=== PATIENT | female | born 1980 | race Caucasian/White ===

== ENCOUNTER 2017-02-22 21:54 | Emergency (ER) | payer BC ==
[~2017-02-22] VITALS: Ht 162.6 cm; Wt 79.0 kg
[~2017-02-22 21:54] MED LIST: CEPH500C2 PO; HYDR-5688 PO; IBUP-1450 PO; OMEG10007 PO; ONDA4TAB46 PO; OXYC5TAB PO; STEROID EYE DROP OPB; VALA500T60 PO
[2017-02-22 22:02] VITALS: TEMP 36.7; Ht 162.6 cm; Wt 79.0 kg
[2017-02-22] MEDS ORDERED: OXYCODONE HCL IR 5 MG TAB (IMMEDIATE RELEASE) PO STA (22:16)
[2017-02-22] MEDS ORDERED: IBUPROFEN 200 MG TAB PO STA (22:16)
[2017-02-22] MEDS ORDERED: OFLOXACIN 0.3% OP SOLN 5 ML BTL OT STA (22:23)
[2017-02-22] MEDS ORDERED: OXYCODONE IR HOME PACK PO ONE (22:30)
[2017-02-22] MEDS ORDERED: NORT10CA2 PO (23:05)
[2017-02-22] MEDS ORDERED: ARTISOL OPB (23:05)
[2017-02-22] MEDS ORDERED: OXYC-57 PO (23:05)
[2017-02-22] MEDS ORDERED: ACET-749 PO (23:05)
[2017-02-22] MEDS ORDERED: AMOX875T PO (23:05)
--- NOTE | 2017-02-22 23:07 | EMERGENCY ROOM VISIT NOTE ---
History First contact with patient: 22:07 Chief Complaint: EAR PAIN Stated Complaint: DOUBLE EARACHE History of Present Illness The patient is a 36 year old female who presents to the Emergency Room with complaints of severe ear pain that has been going on for the last 2 days. The patient started her symptoms 5 days ago with a sore throat. Her ear pain started with the left ear yesterday. It soon moving to the right ear. She has had decreased hearing in the left ear today. The patient saw urgent care earlier today. She was prescribed Augmentin. She has had one dose. She is also tried ibuprofen and a leftover oxycodone with minimal relief of the pain. She was running a fever earlier this week. That has dissipated. She denies any severe headache or neck pain. Review of Systems 6 system review negative. Please see pertinent positives in the history of present illness section. Past Medical/Surgical History Medical Problems: (1) No significant past medical history Surgical Problems: (1) History of ankle surgery (2) History of neck surgery (3) History of surgery on arm History of migraines Family History FH: cancer FH: hypertension Social History Smoking Status: Never Smoker Alcohol Use: occasionally Marital Status: Housing Status: lives with family Occupation Status: employed Current/Historical Medications Scheduled Amoxicillin & Pot Clavulanate (Augmentin 875-125 mg), 1 TAB PO BID Artificial Tear Solution (Tears Naturale), 1 DROP OPB PRN Nortriptyline (Pamelor), 10 MG PO HS Prednisone (Prednisone), 50 MG PO DAILY Scheduled PRN Acetaminophen/Codeine (Tylenol W/Codeine #3), 1 TAB PO Q4 PRN for Pain Ibuprofen (Motrin), 600 MG PO Q6H PRN for Pain Oxycodone Ir (Roxicodone Ir), 1-2 TAB PO Q4H PRN for Pain Oxycodone/Acetaminophen 5MG/325MG (Percocet 5MG/325MG), 1 TABLET PO Q4H PRN for Pain Physical Exam Vital Signs Date Time Temp Pulse Resp B/P (MAP) Pulse Ox O2 Delivery O2 Flow Rate FiO2 02/22/17 23:43 83 20 123/84 100 02/22/17 23:07 83 20 121/84 100 02/22/17 22:02 36.7 77 16 126/88 99 Room Air Physical Exam VITALS: Vitals are noted on the nurse's note and reviewed by myself. Vital signs stable. GENERAL: 36-year-old female, in obvious discomfort, SKIN: The skin was without rashes, erythema, edema, or bruising. HEAD: Normocephalic atraumatic. EARS: Right external auditory canal is a significantly erythematous. The tympanic membrane is bulging and erythematous. There is purulent effusion noted. Left external auditory canal is also erythematous and edematous. Moderate amount of cerumen noted. The tympanic membrane is also erythematous with a purulent effusion noted. At this point, TMs are intact. EYES: Conjunctivae without injection, sclerae without icterus. Extraocular movements intact. NOSE: Patent, turbinates without inflammation or discharge. No sinus tenderness. MOUTH: Mucous membranes moist. No erythema of the pharynx. No significant edema of the tonsils bilaterally. . Uvula midline. Airway patent. Tongue does not deviate. NECK: Supple without nuchal rigidity. Lymphadenopathy in the anterior and cervical chain bilaterally. Cervical spine is nontender. No JVD. HEART: Regular rate and rhythm without murmurs gallops or rubs. LUNGS: Clear to auscultation bilaterally without wheezes, rales or rhonchi. No accessory muscle use. MUSCULOSKELETAL: No muscle atrophy, erythema, or edema noted. Strength 5/5 throughout. NEURO: Patient was alert and oriented to person place and time. Normal sensation to touch. No focal neurological deficits. Medical Decision & Procedures Medications Administered Medications (Trade) Dose Ordered Sig/Neha Route Start Time Stop Time Status Last Admin Dose Admin Prednisone (PredniSONE TAB) 60 mg NOW STAT PO 02/22/17 22:16 02/22/17 22:17 DC 02/22/17 23:04 60 MG Oxycodone HCl (Roxicodone Immediate Rel Tab) 5 mg NOW STAT PO 02/22/17 22:16 02/22/17 22:17 DC 02/22/17 23:04 5 MG Ibuprofen (Advil Tab) 800 mg NOW STAT PO 02/22/17 22:16 02/22/17 22:17 DC 02/22/17 23:03 800 MG Ofloxacin (Ocuflox 0.3% Oph Soln) 10 drops ONE STAT OT 02/22/17 22:23 02/22/17 22:25 DC 02/22/17 23:11 10 DROPS Oxycodone HCl (Roxicodone Immediate Rel 5MG Home Pack) 1 homepack UD ONCE PO 02/22/17 22:30 02/22/17 22:31 DC 02/22/17 23:04 1 HOMEPACK Ondansetron HCl (Zofran Odt) 4 mg NOW STAT PO 02/22/17 23:09 02/22/17 23:10 DC 02/22/17 23:13 4 MG ED Course The patient was seen and examined She was medicated with Motrin 800 mg and oxycodone 5 mg. Ofloxacin drops were placed in the ears bilaterally. She was also given 1 dose of prednisone 60 mg by mouth. She was given a home pack of oxycodone. Discharge instructions were reviewed, and she was discharged in good condition Medical Decision Differential diagnosis: Otitis media, otitis externa, perforated TM, sinusitis, strep pharyngitis This patient is a 36-year-old female that presents emergency department with severe ear discomfort. On exam, both her tympanic membrane and external auditory canal are significantly erythematous. She had a purulent effusion bilaterally. The patient is being adequately covered with Augmentin for 10 days. Given her decreased hearing on the left, She was also prescribed ofloxacin drops to cover for a possible perforated membrane given the severity of her symptoms. She was also given a steroid to calm down inflammation. She was instructed to follow-up with her primary care physician in 48 hours for recheck. She agrees to return here if any new or worsening symptoms. This chart was completed in part utilizing [employer] Speech Voice Recognition software. Attempts were made to minimize the grammatical errors, random word insertions, pronoun errors and incomplete sentences. Any formal questions or concerns about the content, text or information contained within the body of this dictation should be directly addressed to the provider for clarification. Medication Reconcilliation Current Medication List: was personally reviewed by me Blood Pressure Screening Patient's blood pressure: Normal blood pressure Impression Primary Impression: Otitis media Departure Information Dispostion Home / Self-Care Condition FAIR Prescriptions Prednisone (Prednisone) 50 Mg Tab 50 MG PO DAILY for 4 Days, #4 TAB Prov: Jen Bruce PA-C 02/22/17 Oxycodone Ir (Roxicodone Ir) 5 Mg Tab 1-2 TAB PO Q4H Y for Pain, #15 TAB For Initial Treatment Prov: Jen Bruce PA-C 02/22/17 Referrals Erasto Johnston M.D.([facility]) (PCP) Patient Instructions My [facility] Additional Instructions You were evaluated in the emergency department for an ear infection on both sides. It is very important to take the entire course of Augmentin as directed. Please take this medication with food. I recommend eating a yogurt daily or take a probiotic such as Culturelle taking this medication. Ibuprofen 800 mg every 8 hours for pain for 24 hours. Then, please take this medication every 8 hours as needed Oxycodone Immediate Release (OxyIR) 5mg: Take 1-2 pills every four hours for pain. Avoid alcohol, operating machinery or dangerous equipment, working on ladders or roofs, DRIVING, or situations where being under the influence may be dangerous. It is recommended to use an kcep-hoc-[id number] stool softener such as Colace, 100mg twice daily while taking this medication to avoid constipation. Please use ofloxacin ear drops 10 drops to each ear twice daily for 7 days Please take entire course of antibiotics It is very important to follow up with your primary care physician within the next 48-72 hours for a recheck Please return to the emergency department with a new, worsening or concerning symptoms
[2017-02-22] MEDS ORDERED: ONDANSETRON 4MG OD TAB PO STA (23:09)
[2017-02-22] MEDS ORDERED: OXYC1TAB3 PO (23:13)
[2017-02-22] MEDS ORDERED: PRED50TA PO (23:13)
[2017-02-22 23:43] VITALS: BP 123/84; PULSE 83; O2SAT 100
== END 2017-02-22 23:45 | disposition home or self-care (01) ==
LOC: C.EDB 21:54 → C.EDA 23:45
DX: H66.90 Otitis media, unspecified, unspecified ear (principal); Z82.49 Family history of ischemic heart disease and other diseases of the circulatory system

== ENCOUNTER 2017-07-27 05:07 | Observation (INO) | payer BC ==
[2017-07-18 12:59] VITALS: Ht 162.6 cm; Wt 78.6 kg
--- NOTE | 2017-07-18 13:28 | PAT Medication Instructions ---
Service Date Jul 18, 2017. Current Home Medication List Acetaminophen/Codeine (Tylenol W/Codeine #3), 1 TAB PO Q4 PRN for Pain Artificial Tear Solution (Tears Naturale), 1 DROP OPB PRN Nortriptyline (Pamelor), 10 MG PO HS Medication Instructions For Your Scheduled Surgery - Take the following medications the morning of surgery with a sip of water: Acetaminophen/Codeine (Tylenol W/Codeine #3), 1 TAB PO Q4 PRN (if needed, can be taken up to four hours before surgery) Artificial Tear Solution (Tears Naturale), 1 DROP OPB PRN (if needed) - Take the following medications as scheduled the night before surgery: Acetaminophen/Codeine (Tylenol W/Codeine #3), 1 TAB PO Q4 PRN for Pain (if needed) Artificial Tear Solution (Tears Naturale), 1 DROP OPB PRN (if needed) Nortriptyline (Pamelor), 10 MG PO HS If you have any questions please call us at [phone] or [phone] or [phone]
[2017-07-18 14:45] LABS: BASO ABS # 0.07 K/uL (0-0.2); EOS % 1.6 %; EOS ABS # 0.11 K/uL (0-0.5); HEMATOCRIT 38.7 % (37-47); HEMOGLOBIN 13.1 g/dL (12.0-16.0); IG# 0.01 K/uL (0.00-0.02); LYMPH % 26.2 %; MEAN CELL VOLUME 83.8 fL (80-100); MEAN CORPUSCULAR HEMOGLOBIN 28.4 pg (25-34); MEAN CORPUSCULAR HGB CONC 33.9 g/dl (32-36); MEAN PLATELET VOLUME 8.8 fL (7.4-10.4); MONO % 7.3 %; NEUT % 63.8 %; NEUT ABS # 4.37 K/uL (1.4-6.5); PLATELET COUNT 291 K/uL (130-400); RED CELL DISTRIBUTION WIDTH CV 13.3 % (11.5-14.5); RED CELL DISTRIBUTION WIDTH SD 40.2 fL (36.4-46.3); WHITE BLOOD COUNT 6.86 K/uL (4.8-10.8)
[2017-07-18 14:55] LABS: ALBUMIN 3.4 gm/dl (3.4-5.0); CALCIUM 9.1 mg/dl (8.5-10.1); CREATININE 0.78 mg/dl (0.60-1.20); POTASSIUM 3.9 mmol/L (3.5-5.1)
[2017-07-18 14:57] LABS: TOTAL PROTEIN 7.4 gm/dl (6.4-8.2)
[2017-07-27] VITALS (8 sets, daily range): BP systolic 96–126; BP diastolic 64–81; PULSE 73–100; TEMP 36.2–36.8; O2SAT 96–99
[~2017-07-27] VITALS: Ht 162.6 cm; Wt 78.6 kg
[~2017-07-27 05:07] MED LIST changes: +ACET300T3 PO; +ARTISOL OPB; -CEPH500C2 PO; -HYDR-5688 PO; -IBUP-1450 PO; +NORT10CA2 PO; -OMEG10007 PO; -ONDA4TAB46 PO; -OXYC5TAB PO; -STEROID EYE DROP OPB; -VALA500T60 PO
[2017-07-27] MEDS ORDERED: OXYC1TAB3 PO (05:43)
[2017-07-27] MEDS ORDERED: LACTATED RINGER'S 1000ML 1,000 ML IV SCH ×3 (06:00→12:00)
[2017-07-27] MEDS ORDERED: ROCURONIUM BROMIDE 10 MG/ML 5 ML VIAL ONE (06:39)
[2017-07-27] MEDS ORDERED: LIDOCAINE HCL 2% 2 ML VIAL (20MG/ML) ONE (06:39)
[2017-07-27] MEDS ORDERED: PROPOFOL IV EMULSION 10 MG/ML 20 ML VIAL ONE (06:39)
[2017-07-27] MEDS ORDERED: FENTANYL CITRATE INJ 50 MCG/1 ML 2 ML VIAL ONE ×2 (06:40→07:31)
[2017-07-27] MEDS ORDERED: MIDAZOLAM HCL 1 MG/ML 2ML VIAL ONE (06:40)
[2017-07-27] MEDS ORDERED: BUPIVACAINE/EPINEPHRINE 0.5% MPF 1:200,000 30 ML VIAL ONE (06:54)
--- NOTE | 2017-07-27 07:12 | History & Physical Bridge Note ---
H&P Re-Evaluation Bridge Note: I have examined the patient, reviewed the History & Physical and in the interval since the performance of the History & Physical I have noted the following changes of clinical significance: No changes noted
[2017-07-27] MEDS ORDERED: DEXAMETHASONE SOD INJ 4 MG/ML VIAL ONE (07:31)
[2017-07-27] MEDS ORDERED: HYDROmorphone INJ 2 MG/ML SYR/VIAL ONE (08:23)
[2017-07-27] MEDS ORDERED: METHYLENE BLUE 0.5% 10 ML VIAL ONE ×2 (09:09→10:06)
[2017-07-27] MEDS ORDERED: ARISTA ABSORBABLE HEMOSTAT 3GM TOP ONE (09:28)
[2017-07-27] MEDS ORDERED: OXIDIZED CELLULOSE 1 EA TOP ONE ×2 (09:31→09:32)
[2017-07-27] MEDS ORDERED: HYDROmorphone INJ 2 MG/ML SYR/VIAL IV PRN (09:45)
[2017-07-27] MEDS ORDERED: ATROPINE SULFATE 0.1 MG/ML 5ML SYR IV PRN (09:45)
[2017-07-27] MEDS ORDERED: EpHEDrine SULFATE INJ 50 MG/ML AMP IV PRN (09:45)
[2017-07-27] MEDS ORDERED: ONDANSETRON INJ 2 MG/ML 2 ML VIAL IV PRN ×2 (09:45→10:45)
[2017-07-27] MEDS ORDERED: PROMETHAZINE HCL INJ 6.25 MG in SODIUM CHLORIDE 0.9% 50ML 50 ML IV PRN (09:45)
--- NOTE | 2017-07-27 10:39 | [facility] Post Operative Brief Note ---
Immediate Operative Summary Operative Date July 27, 2017. Pre-Operative Diagnosis 9cm right ovarian cyst Post-Operative Diagnosis same as preop Procedure(s) Performed Operative Laparoscopy, Drainage of Right Ovarian Cyst, Right Salpingo-Oophorectomy, Cystoscopy, Pelvic Washing, Extensive Lysis of Adhesions Surgeon Dr. Giuseppe Jones Stacker And Sorter Operator Surgeon(s) Dr. Carlos A Paul Estimated Blood Loss 50ML Findings Consistent with Post-Op Diagnosis ictated Specimens Permanent Solution: A.) Right Ovary and Right Fallopian Tube Cytology: Pelvic Washing Drains None Anesthesia Type General Complication(s) none
[2017-07-27] MEDS ORDERED: ZOLPIDEM TARTRATE 5 MG TAB PO PRN (10:45)
[2017-07-27] MEDS ORDERED: PROMETHAZINE HCL INJ 12.5 MG in SODIUM CHLORIDE 0.9% 50ML 50 ML IV PRN (10:45)
[2017-07-27] MEDS ORDERED: BISACODYL 10 MG SUPP PR PRN (10:45)
[2017-07-27] MEDS ORDERED: ACETAMINOPHEN 325 MG TAB PO PRN (10:45)
[2017-07-27] MEDS ORDERED: OXYCODONE/ACETAMINOPHEN 5-325 TAB PO PRN (10:45)
[2017-07-27] MEDS ORDERED: MAGNESIUM HYDROXIDE SUSP 30 ML UDC PO PRN (10:45)
[2017-07-27] MEDS ORDERED: KETOROLAC TROMETHAMINE 30 MG/ML VIAL IV. PRN (10:45)
[2017-07-27] MEDS ORDERED: PROMETHAZINE HCL INJ 25 MG in SODIUM CHLORIDE 0.9% 50ML 50 ML IV PRN (10:45)
[2017-07-27] MEDS: FENTANYL CITRATE INJ 50 MCG/1 ML 2 ML VIAL IV PRN ×3 (10:53→11:07)
[2017-07-27] MEDS ORDERED: KETOROLAC TROMETHAMINE 30 MG/ML VIAL ONE (11:01)
[2017-07-27] MEDS ORDERED: GLYCOPYRROLATE INJ 0.2 MG/ML VIAL ONE (11:51)
[2017-07-27] MEDS ORDERED: NEOSTIGMINE METHYLSULFATE 5 MG/5 ML SYR ONE (11:51)
[2017-07-27] MEDS ORDERED: PHENYLEPHRINE 100MCG/ML 5ML SYR ONE (11:51)
--- NOTE | 2017-07-27 11:55 | Anesthesiology Progress Note ---
Anesthesia Post Op Note Date & Time July 27, 2017 at 11:55 Vital Signs Pain Intensity: 3 Vital Signs Past 12 Hours Date Time Temp Pulse Resp B/P (MAP) Pulse Ox O2 Delivery O2 Flow Rate FiO2 07/27/17 11:40 62 12 106/65 100 Nasal Cannula 2 07/27/17 11:30 36.3 68 12 97/63 100 Nasal Cannula 2 07/27/17 11:15 71 12 103/64 98 Nasal Cannula 2 07/27/17 11:05 66 18 103/63 100 Oxymask 10 07/27/17 10:55 72 20 107/74 100 Oxymask 10 07/27/17 10:47 36.5 79 18 114/73 100 Oxymask 10 07/27/17 05:46 36.8 77 16 119/81 (94) 97 Room Air Notes Mental Status: alert / awake / arousable, participated in evaluation Pt Amnestic to Procedure: Yes Nausea / Vomiting: adequately controlled Pain: adequately controlled Airway Patency, RR, SpO2: stable & adequate BP & HR: stable & adequate Hydration State: stable & adequate Anesthetic Complications: no major complications apparent
[2017-07-27] MEDS ORDERED: IV FLUIDS COMPLETED PRN (12:45)
[2017-07-27] MEDS: IBUPROFEN 600 MG TAB PO PRN ×2 (15:33→20:18)
[2017-07-27] MEDS: OXYCODONE/ACETAMINOPHEN 5-325 TAB PO PRN ×2 (15:33→20:18)
[2017-07-27] MEDS: SIMETHICONE 80 MG CHEW PO PRN (16:02)
--- NOTE | 2017-07-27 17:29 | OPERATIVE REPORT ---
DATE OF OPERATION: 07/27/2017 INDICATION FOR SURGERY: This is a 36-year-old with 9 cm right ovarian cyst. PREOPERATIVE DIAGNOSES: 1. Chronic pelvic pain. 2. A 9 cm right ovarian cyst. POSTOPERATIVE DIAGNOSES: 1. Chronic pelvic pain. 2. A 9 cm right ovarian cyst. 3. Extensive lysis of adhesion. PROCEDURES: 1. Operative laparoscopy. 2. Drainage of right ovarian cyst. 3. Right salpingo-oophorectomy. 4. Cystoscopy. 5. Pelvic washings. 6. Extensive lysis of adhesion. SURGEON: Giuseppe Jones M.D. INFORMATION TECHNOLOGY COORDINATOR: Carlos A Paul DO ESTIMATED BLOOD LOSS: 50 mL FINDINGS: Normal female escutcheon. No lesions on the vulva or cervix. Abdominal findings, a 9-10 cm chocolate filled right adnexal mass, appears to be ovarian cyst engulfed around the entire right ovary. There was extensive adhesion of the cyst to the abdominal wall and to the posterior cul-de-sac. There were also adhesions of the sigmoid colon to the posterior cul-de-sac. The left adnexa was unremarkable. The left ovary was absent from a previous salpingo-oophorectomy. Findings from cystoscopy were unremarkable. Both urethral orifices were identified and urine was seen jetting out of both urethral openings into the bladder. SPECIMEN: Right ovary and right fallopian tube, cytology pelvic washings. DRAINS: None. ANESTHESIA: General. COMPLICATIONS: None. DISPOSITION: Stable to recovery room. DESCRIPTION OF PROCEDURE: The patient was taken to the operating room where she was prepped and draped in normal sterile fashion in dorsal lithotomy position after time out was called. Bladder was catheterized and clear urine was obtained. A heavy weighted speculum was placed in the vagina. Landis retractor was used to retract the anterior part of the vagina. Single tooth tenaculum was used to grab the cervix. A uterine manipulator placed into the uterus to help manipulate the uterus during laparoscopy. Attention was paid to the abdominal part of the procedure where an infraumbilical incision was made with a scalpel. A Veress needle attached to a syringe was placed in the abdomen while tenting up the abdomen at a 45 degree angle. Intraabdominal placement was confirmed using a water filled syringe. Abdomen was insufflated with CO2 gas to 3 liters. The Veress needle was removed and a 5 mm trocar was placed in the abdomen under direct visualization. Once inside the abdomen, the trocar was repositioned. Three more accessory ports were placed in the abdomen, all under direct visualization. A 10-mm trocar was placed in the suprapubic region, also under direct visualization. The findings of the abdomen is already dictated above. Through an accessory ports, fluid was poured into the pelvis for pelvic washings. The fluid was suctioned and sent to Cytology for cytologic evaluation. A needle attached to suction was passed through the accessory port and the needle was used to baum the cyst. Cyst fluid was suctioned out as much as possible. The incision in the cyst was extended and the suction pushed further into the cyst cavity, more chocolate cyst fluid was obtained and drained. Because the adnexa was attached to the posterior cul-de-sac, extensive lysis of adhesion was performed to separate the cyst wall from the posterior cul-de-sac. There was also attachment of the sigmoid colon to the cul-de-sac, which was also carefully dissected. After extensive dissection and lysis of adhesions, the entire ovary and cyst was transected. The infundibulopelvic was transected as well. There was good hemostasis. The 10 mm accessory port was used to remove the specimen. Specimen bag was passed through the 10 mm accessory port and the specimen placed in the specimen bag. Two specimen bags were used because of the size of this specimen. A copious amount of irrigation was used to irrigate the abdomen with suction. The suction was removed from the abdomen. Attention was paid to the cystoscopy part of the procedure where cystoscope was placed in the bladder, the bladder appeared grossly normal. There appeared to be no trauma in the bladder. Both ureteral orifices were seen and peristalsis was present. Both urethral orifices had urine jetting out of the urethral orifice. The attention was paid back to the abdominal part of the procedure where the trocars were removed. The 10 mm incision was closed in layer, the fascia was closed with 0 Vicryl. All other trocar sites were 5 mm and skin was closed with 4-0 Monocryl. All instruments are removed from the abdomen and the vagina including retractors, sponges and needles and accounted for x2. The patient is sent to recovery in stable condition. I attest to the content of the Intraoperative Record and any orders documented therein. Any exceptions are noted below. MTDD
[2017-07-27 19:59] LABS: HEMOGLOBIN 12.6 g/dL (12.0-16.0)
[2017-07-27] MEDS: DOCUSATE SODIUM 100 MG CAP PO SCH (20:17)
[2017-07-28] MEDS: OXYCODONE/ACETAMINOPHEN 5-325 TAB PO PRN ×3 (00:16→12:34)
[2017-07-28] MEDS: IBUPROFEN 600 MG TAB PO PRN ×3 (00:17→12:34)
[2017-07-28 03:50] VITALS: BP 105/72; PULSE 101; TEMP 36.7; O2SAT 99
[2017-07-28 07:30] VITALS: BP 100/65; PULSE 95; TEMP 36.6; O2SAT 98
[2017-07-28 07:42] LABS: BASO % 0.1 %; BASO ABS # 0.02 K/uL (0-0.2); HEMATOCRIT 34.8 % (37-47); HEMOGLOBIN 11.8 g/dL (12.0-16.0); IG# 0.04 K/uL (0.00-0.02); LYMPH % 6.7 %; LYMPH ABS # 0.93 K/uL (1.2-3.4); MEAN CELL VOLUME 83.3 fL (80-100); MEAN CORPUSCULAR HEMOGLOBIN 28.2 pg (25-34); MEAN CORPUSCULAR HGB CONC 33.9 g/dl (32-36); MONO % 6.2 %; MONO ABS # 0.86 K/uL (0.11-0.59); NEUT % 86.7 %; NEUT ABS # 11.98 K/uL (1.4-6.5); PLATELET COUNT 221 K/uL (130-400); WHITE BLOOD COUNT 13.83 K/uL (4.8-10.8)
[2017-07-28] MEDS: DOCUSATE SODIUM 100 MG CAP PO SCH (08:05)
[2017-07-28 08:06] LABS: CALCIUM 8.3 mg/dl (8.5-10.1); CREATININE 0.77 mg/dl (0.60-1.20); POTASSIUM 3.8 mmol/L (3.5-5.1)
[2017-07-28] MEDS: SIMETHICONE 80 MG CHEW PO PRN (08:06)
--- NOTE | 2017-07-28 09:47 | Surgery Progress Note ---
Surgery Progress Note Date of Service July 28, 2017. Subjective Post OP Day: 1 + feeling well, + complaints (gas pain), + chest pain, + ambulating (Minimal), + SOB, + flatus (+ve ), + pain controlled, + using RN CLINICAL TRIALS, + diet (Tolerating PO food and meds), No bowel movement, No nausea, No vomiting Objective Vital Signs: Date Time Temp Pulse Resp B/P (MAP) Pulse Ox O2 Delivery O2 Flow Rate FiO2 07/28/17 07:30 98 Room Air 07/28/17 07:30 36.6 95 24 100/65 (77) 98 Room Air 07/28/17 03:50 36.7 101 18 105/72 (83) 99 Room Air 07/27/17 23:30 Room Air 07/27/17 23:30 36.8 100 18 108/69 (82) 96 Room Air 07/27/17 20:30 Room Air 07/27/17 20:30 36.7 93 18 118/77 (91) 98 Room Air 07/27/17 15:30 Room Air 07/27/17 15:00 36.6 92 18 126/79 (95) 98 Room Air 07/27/17 14:00 36.2 89 18 118/77 (91) 98 Room Air 07/27/17 13:00 36.2 78 18 96/64 (75) 98 Room Air 07/27/17 12:30 36.2 73 16 100/68 (79) 97 Room Air 07/27/17 12:00 36.2 85 18 97/64 (75) 99 Room Air 07/27/17 12:00 Room Air 07/27/17 11:40 62 12 106/65 100 Nasal Cannula 2 07/27/17 11:30 36.3 68 12 97/63 100 Nasal Cannula 2 07/27/17 11:15 71 12 103/64 98 Nasal Cannula 2 07/27/17 11:05 66 18 103/63 100 Oxymask 10 07/27/17 10:55 72 20 107/74 100 Oxymask 10 07/27/17 10:47 36.5 79 18 114/73 100 Oxymask 10 General Appearance: WD/WN, no apparent distress Head: normocephalic, atraumatic Neck: supple, no adenopathy, thyroid normal, no JVD, no carotid bruits, trachea midline Respiratory/Chest: chest non-tender, lungs clear, normal breath sounds, no respiratory distress, no accessory muscle use Cardiovascular: regular rate, rhythm, no edema, no gallop, no JVD, no murmur Abdomen: normal bowel sounds, non tender, non distended, soft, no organomegaly , no pulsatile mass Incision(s): clean, dry, intact, no erythema, no drainage Extremities: normal range of motion, non-tender, normal inspection, no pedal edema, no calf tenderness, normal capillary refill, pelvis stable Laboratory Results: Results Past 24 Hours Test 07/27/17 19:44 07/28/17 07:10 Range/Units Hemoglobin 12.6 11.8 12.0-16.0 g/dL Hematocrit 36.0 34.8 37-47 % White Blood Count 13.83 4.8-10.8 K/uL Red Blood Count 4.18 4.2-5.4 M/uL Mean Corpuscular Volume 83.3 80-100 fL Mean Corpuscular Hemoglobin 28.2 25-34 pg Mean Corpuscular Hemoglobin Concent 33.9 32-36 g/dl Platelet Count 221 130-400 K/uL Neutrophils (%) (Auto) 86.7 % Lymphocytes (%) (Auto) 6.7 % Monocytes (%) (Auto) 6.2 % Eosinophils (%) (Auto) 0.0 % Basophils (%) (Auto) 0.1 % Neutrophils # (Auto) 11.98 1.4-6.5 K/uL Lymphocytes # (Auto) 0.93 1.2-3.4 K/uL Monocytes # (Auto) 0.86 0.11-0.59 K/uL Eosinophils # (Auto) 0.00 0-0.5 K/uL Basophils # (Auto) 0.02 0-0.2 K/uL Immature Granulocyte % (Auto) 0.3 % Immature Granulocyte # (Auto) 0.04 0.00-0.02 K/uL Sodium Level 139 136-145 mmol/L Potassium Level 3.8 3.5-5.1 mmol/L Chloride Level 107 98-107 mmol/L Carbon Dioxide Level 26 21-32 mmol/L Anion Gap 6.0 3-11 mmol/L Blood Urea Nitrogen 9 7-18 mg/dl Creatinine 0.77 0.60-1.20 mg/dl Est Creatinine Clear Calc Drug Dose 101.5 ml/min Estimated GFR () 114.3 Estimated GFR (Non- 98.6 BUN/Creatinine Ratio 11.6 10-20 Random Glucose 106 70-99 mg/dl Calcium Level 8.3 8.5-10.1 mg/dl Chemistry Specimen Hemolysis Assessment & Plan S/P RSO with extensive Lysis of adhesions Pt has moderate discomfort from gas pain will hold off disch for now Continue to monitor
[2017-07-28 11:45] VITALS: BP 115/72; PULSE 92; TEMP 36.6; O2SAT 98
--- NOTE | 2017-07-28 12:50 | Progress Note ---
Progress Note Date of Service July 28, 2017. Progress Note pt now feels better and wishes to go home d/c home with instrcutions
[2017-07-28] MEDS ORDERED: OXYC-57 PO (12:52)
[2017-07-28] MEDS ORDERED: MTR600X PO (12:52)
[2017-07-28] MEDS ORDERED: MYL80 PO (12:52)
--- NOTE | 2017-07-28 12:54 | Discharge Instructions ---
Discharge Instructions Date of Service July 28, 2017. Admission Reason for Admission: Right Ovarian Cysts Discharge Discharge Diagnosis / Problem: laparoscopy Discharge Goals Goal(s): Routine recovery after surgery Activity Recommendations Activity Limitations: as noted below POST OPERATIVE: BOWEL FUNCTION/MEDICATIONS: 1. Constipation pain and discomfort are the most common complaints 5-7 days after surgery. Points 2-6 address the things that can help. 2. Chewing gum can help stimulate the gut and help improve digestion and motility. 3. Milk of Magnesia 1-2 times per day until return of bowel function. 4. Colace is a stool softener that helps. Taking this 2-3 times per day until bowel function returns to normal is highly recommended. 5. Dulcolax is a laxative that may be used if several days have passed without a bowel movement. Alternatively Miralax may be used daily instead. 6. Drink plenty of fluids as this will also reduce constipation. 7. Narcotic pain medications will be prescribed by your physician. They are safe to use and we encourage you to use them. If you are not allergic, ibuprofen will also be prescribed. Many patients will be able to transition off of the narcotic medications to ibuprofen by postoperative day 3. ACTIVITY RECOMMENDATIONS: 1. Get plenty of rest and listen to your body. If you are tired, take a nap. 2. You may shower, but do not take a tub bath until you see your doctor at the 2 week post operative visit. 3. Absolutely NO intercourse and nothing in the vagina until you are examined by your doctor at the 6 week visit. At that visit it will be determined when such activities can be resumed. This can range from 6-12 weeks after your surgery depending on healing time. 4. The main physical activity in the first week should be walking. By the second week you can slowly increase activity. There are no limits on walking up and down stairs. 5. Do not lift more than 5-10 lbs for 4 weeks. Remember the "one-handed rule", i.e. if you can lift something with only one hand it's likely okay. 6. Minimize oracle consultant like vacuuming and exercising for 4 weeks. "Overdoing it" can lead to incisions not healing, pain and vaginal bleeding , so again, listen to your body. 7. Driving can be resumed when you feel able. Do not drive within 24 hours of taking a narcotic medication. EXPECTATIONS: 1. Vaginal spotting, bleeding and discharge are common after surgery. There may even be an odor to the discharge which is often related to sutures used in the vagina. If you experience heavy vaginal bleeding, call the office number day or night [phone] 2. Bladder discomfort is common after surgery from the catheter. This usually resolves in 1-2 weeks. 3. By the end of the 3rd or 4th week you should be feeling much better. It may take up to 6 weeks for your energy levels to return to normal. 4. Narcotic medications have side effects such as: dizziness, headache, nausea and/or vomiting. If you suspect your pain medication is causing problems, call our office and we may be able to prescribe an alternate medication. 5. The skin incisions are often covered with a liquid bandage. This will gradually peel off over time. CALL THE OFFICE IF YOU HAVE ANY OF THE FOLLOWIN. Temperature of 101 degrees or higher. 2. Severe abdominal or pelvic pain not relieved by pain medication. 3. Persistent nausea or vomiting. 4. Increased pain with urination or difficulty urinating. 5. Bright red bleeding that soaks more than 1 pad per hour. CONTACT PHONE NUMBERS: Main Office: [phone] FOLLOW-UP: Post-Operative Appointments: * Individual instructions will have been given about the timing of your first examination, but this is usually at the end of the second week home. * You will need to call the office at soon after discharge to make the appointment for your post-op check-up if it has not already been scheduled. * Additional information regarding activity, sexual intercourse and when to return to work will be given at this appointment. WE WISH YOU A SPEEDY RECOVERY! . Current Hospital Diet Patient's current hospital diet: Regular Diet Discharge Diet Recommended Diet: Regular Diet Procedures Procedures Performed: Operative Laparoscopy, Drainage of Right Ovarian Cyst, Right Salpingo-Oophorectomy, Cystoscopy, Pelvic Washing, Extensive Lysis of Adhesions Pending Studies Studies pending at discharge: no Medical Emergencies . Who to Call and When: Medical Emergencies: If at any time you feel your situation is an emergency, please call 911 immediately. . Non-Emergent Contact Non-Emergency issues call your: Specialist . . "Provider Documentation" section prepared by Giuseppe Jones. .
[2017-07-28 14:00] VITALS: BP 115/72; PULSE 92; TEMP 36.6; O2SAT 98
--- NOTE | 2017-07-28 14:38 | DISCHARGE SUMMARY ---
CHIEF COMPLAINT: 1. Chronic pelvic pain. 2. Right ovarian cyst. HISTORY OF PRESENT ILLNESS: This is a 36-year-old G2, P2 with a 9 cm right ovarian cyst. The patient has had chronic pelvic pain with this cyst. She underwent operative laparoscopy, drainage of the ovarian cyst, pelvic washings, right salpingo-oophorectomy and cystoscopy as well as extensive lysis of adhesions. The patient did well. She was kept overnight because of the extensive surgery. Today, she is able to ambulate, tolerate p.o. food and meds. She does have some abdominal discomfort but is ready to go home. PAST MEDICAL HISTORY: History of herpes simplex type 2 and radial ulnar fracture. PAST SURGICAL HISTORY: History of left ovarian cystectomy, revision of radius and ulna fracture as well as revision of ankle fracture. FAMILY HISTORY: Noncontributory. SOCIAL HISTORY: The patient denies tobacco, drug or alcohol use. ALLERGIES: The patient denies allergy to any medications. REVIEW OF SYSTEMS: Negative except as dictated in the HPI. PHYSICAL EXAMINATION: VITAL SIGNS: Temperature is 36.6, pulse is 92, respirations 18, blood pressure 115/72. LABS: On 07/28/2017 showed hemoglobin of 11.8, hematocrit of 34.8. Rest of labs unremarkable. PHYSICAL EXAMINATION: GENERAL: Well-developed, well-nourished white female in moderate discomfort post-surgery. HEART: S1, S2, regular rhythm and rate. LUNGS: Clear to auscultation bilaterally. ABDOMEN: Nontender, slightly distended. Incision clean, dry, and intact. Positive bowel sounds. EXTREMITIES: No cyanosis, clubbing or edema. CONDITION ON DISCHARGE: Stable. OPERATION: Right salpingo-oophorectomy with extensive lysis of adhesions. DISCHARGE DIAGNOSIS: Postop after laparoscopy. PLAN ON DISCHARGE: The patient is discharged home with instructions regarding activity, diet, followup appointment, and medication.
== END 2017-07-28 14:00 | disposition home or self-care (01) ==
LOC: C.ACU 05:07 → C.MS4N 05:31 → ENRESERV 11:30
PROVIDERS: ADMIT Obstetrics & Gynecology; ATTEND Obstetrics & Gynecology
DX: N83.01 Follicular cyst of right ovary (principal); N80.2 Endometriosis of fallopian tube; N80.1 Endometriosis of ovary; Z98.890 Other specified postprocedural states